=== PATIENT | female | born 1960 | race Caucasian/White ===

== ENCOUNTER 2017-10-25 18:44 | Emergency (ER) | payer OTHER ==
[~2017-10-25] VITALS: Ht 154.9 cm; Wt 57.6 kg
[2017-10-25] MEDS ORDERED: ARMOUR THYROID60 M1 (19:16)
== END 2017-10-25 21:53 | disposition home or self-care (01) ==
LOC: ER 18:44
DX: T19.2XXA Foreign body in vulva and vagina, initial encounter (principal); W45.8XXA Other foreign body or object entering through skin, initial encounter; Y93.89 Activity, other specified; Y92.89 Other specified places as the place of occurrence of the external cause; Y99.8 Other external cause status

== ENCOUNTER 2023-11-19 07:32 | Emergency (ER) | payer OTHER ==
[~2023-11-19] VITALS: Ht 154.9 cm; Wt 58.1 kg
[~2023-11-19 07:32] MED LIST: ARMOUR THYROID60 M1
[2023-11-19] MEDS ORDERED: 0.9 % SODIUM CHLORIDE 1,000 ML IV ONE (09:00)
[2023-11-19] MEDS ORDERED: FAMOtidine 10 MG/ML (4ML VIAL) IV ONE (09:00)
[2023-11-19] MEDS ORDERED: ONDANSETRON HCL 2 MG/ML VIAL IV ONE (09:00)
[2023-11-19] MEDS ORDERED: ONDANSETRON HCL 2 MG/ML VIAL ONE (09:02)
[2023-11-19] MEDS ORDERED: FAMOTIDINE/PF 20 MG/2 ML VIAL ONE (09:03)
[2023-11-19 10:24] LABS: HEMATOCRIT 42.1 % (36.0-45.00); HEMOGLOBIN 14.4 g/dL (12.0-15.00); MEAN CELL VOLUME 87.1 fL (80.00-100.00); MEAN CORPUSCULAR HEMOGLOBIN 29.8 pg (27.00-32.0); MEAN CORPUSCULAR HGB CONC 34.2 g/dl (32.0-36.0); PLATELET COUNT 296 K/uL (150-450); RED BLOOD COUNT 4.84 M/uL (4.00-6.00); RED CELL DISTRIBUTION WIDTH 13.9 % (11.5-14.5)
[2023-11-19] MEDS ORDERED: PEPCID AC20 MG PO (12:20)
== END 2023-11-19 12:42 | disposition home or self-care (01) ==
LOC: ER 07:33
PROVIDERS: General Practice
DX: R19.7 Diarrhea, unspecified (principal); Z87.09 Personal history of other diseases of the respiratory system; E03.9 Hypothyroidism, unspecified